=== PATIENT | female | born 1995 | race Caucasian/White ===

== ENCOUNTER 2021-01-01 15:07 | Emergency (ER) | payer OTHER ==
[~2021-01-01] VITALS: Ht 172.7 cm; Wt 63.5 kg
--- NOTE | 2021-01-01 15:27 | NUR ---
The patient bibs for c/o head pain s/p hit head on the edge of electrical box, no loc, +Nausea happened thursday. Rates head pain /. The patient is alert and oriented x4. In room air and denies SOB. Respiration regular and unlabored. Attached to the monitor.
[2021-01-01] MEDS ORDERED: ACET-2605 PO (15:35)
[2021-01-01 15:56] VITALS: BP 124/68
--- NOTE | 2021-01-01 15:56 | NUR ---
Patient discharged to home in stable condition. Written and verbal after care instructions given. Patient verbalizes understanding of instruction.
== END 2021-01-01 15:56 | disposition home or self-care (01) ==
LOC: ER 15:12
DX: S09.8XXA Other specified injuries of head, initial encounter (principal); F07.81 Postconcussional syndrome; Z88.6 Allergy status to analgesic agent; W22.8XXA Striking against or struck by other objects, initial encounter; Y93.89 Activity, other specified; Y92.89 Other specified places as the place of occurrence of the external cause; Y99.8 Other external cause status